=== PATIENT | male | born 1950 | race Caucasian/White ===

== ENCOUNTER 2021-12-22 08:28 | Observation (INO) | payer MEDICARE ==
--- NOTE | 2021-12-22 08:31 | ERPHSYRPT ---
- History of Present Illness Time Seen by Provider: 12/22/21 08:31 Source: patient, family Exam Limitations: no limitations Physician History: This is a 71-year-old white male who Saturday prior to this evaluation ate a hotdog and then felt as though this food bolus was caught in his esophagus. Early on, he states he was having difficulty swallowing his secretions. However, he was breathing fine so he waited. This morning, he did cough up onion which he had with his hot dog and he did try a small amount of liquid this morning which he tolerated. He does have painful swallowing and he did not want to take any more oral intake until he was evaluated. He denies chest pain. He denies shortness of breath. He has no nausea vomiting or diarrhea symptoms. He is never had an esophageal food bolus stuck in the past patient does have a history of coronary artery disease, myocardial infarction and hypertension. Patient did not take his blood pressure medication since Saturday because he could not swallow his pills. Timing/Duration: gradual onset Severity: mild Prearrival Treatment: no prearrival treatment Modifying Factors: Improves With: other Associated Symptoms: difficulty swallowing, No drooling (Patient is no longer drooling but has not fully tested his swallowing) Allergies/Adverse Reactions: No Known Drug Allergies Allergy (Unverified 12/22/21 08:41) Travel Risk - International Travel Have you traveled outside of the country in past 3 weeks: No - Coronavirus Screening Are you exhibiting any of the following symptoms?: No Close contact with a COVID-19 positive Pt in past 14-21 Days: No - Review of Systems Constitutional: No Symptoms Eyes: No Symptoms Ears, Nose, & Throat: No Symptoms Respiratory: No Symptoms Cardiac: No Symptoms Abdominal/Gastrointestinal: Dysphagia Genitourinary Symptoms: No Symptoms Musculoskeletal: No Symptoms Skin: No Symptoms Neurological: No Symptoms Psychological: No Symptoms Endocrine: No Symptoms Hematologic/Lymphatic: No Symptoms Immunological/Allergic: No Symptoms All Other Systems: Reviewed and Negative - Past Medical History Neurological History: Peripheral Neuropathy Cardiac History: Coronary Artery Disease, High Cholesterol, Hypertension, Myocardial Infarction ([place]) Respiratory History: No Pertinent History Endocrine Medical History: No Pertinent History Musculoskeletal History: Fractures Other Medical History: HX FX RIGHT ELBOW, RIGHT LOWER LEG - Nursing Vital Signs Nursing Vital Signs: Pain Scale Pain Intensity 0 - Physical Exam General Appearance: no apparent distress, alert, anxiety Eye Exam: bilateral eye: normal inspection, PERRL, EOMI Ear Exam: bilateral ear: auricle normal Nasal Exam: normal inspection Throat Exam: normal, pharynx normal, No excessive drooling Neck Exam: normal inspection, non-tender, supple, full range of motion, trachea midline Cardiovascular/Respiratory Exam: chest non-tender, no respiratory distress Abdominal Exam: non-tender Neurologic Exam: alert, oriented x 3, cooperative, supervisor mails II-XII nml as tested, normal mood/affect, nml cerebellar function, nml station & gait, sensation nml Skin Exam: normal color, warm, dry SpO2 Interpretation: normal O2 Delivery: Room Air - Course Nursing assessment & vital signs reviewed: Yes EKG Interpreted by Me: RATE (74), Sinus Rhythm, NORMAL AXIS, NORMAL INTERVALS, NORMAL QRS, NORMAL ST-T, Other (No acute ischemic changes today) Ordered Tests: Active Orders 24 hr Category Date Time Status EKG-ER Only STAT Care 12/22/21 09:08 Active IV Insertion STAT Care 12/22/21 09:08 Active CBC W DIFF Stat Lab 12/22/21 09:20 Completed CMP Stat Lab 12/22/21 09:20 Completed TROPONIN Q4H Lab 12/22/21 09:20 Completed TROPONIN Q4H Lab 12/22/21 13:15 Ordered TROPONIN Q4H Lab 12/22/21 17:15 Ordered Transfer Order Routine Transfer 12/22/21 Ordered Medication Summary Generic Name Dose Route Start Last Admin Trade Name Freq PRN Reason Stop Dose Admin Sodium Chloride 1,000 mls @ 100 mls/hr 12/22/21 09:15 12/22/21 09:41 Sodium Chloride 0.9% 1000 Ml IV 01/21/22 09:14 100 mls/hr .Q10H MARIIA Administration Discontinued Medications Generic Name Dose Route Start Last Admin Trade Name Freq PRN Reason Stop Dose Admin Glucagon 1 mg 12/22/21 09:21 12/22/21 09:41 Glucagon 1 Mg/Vial Vial IM 12/22/21 09:22 1 mg STAT ONE Administration Glucagon Confirm 12/22/21 09:34 Glucagon 1 Mg/Vial Vial Administered 12/22/21 09:35 Dose 1 mg .ROUTE .STK-MED ONE Hydralazine HCl 10 mg 12/22/21 10:06 Hydralazine Hcl 20 Mg/Ml Vial IV 12/22/21 10:07 STAT ONE Metoprolol Tartrate 5 mg 12/22/21 09:08 12/22/21 09:41 Metoprolol Tartrate 5 Mg/5 Ml Vial IV 12/22/21 09:09 5 mg STAT ONE Administration Metoprolol Tartrate Confirm 12/22/21 09:33 Metoprolol Tartrate 5 Mg/5 Ml Vial Administered 12/22/21 09:34 Dose 5 mg IV .STK-MED ONE Lab/Rad Data: Laboratory Result Diagrams 12/22/21 09:20 12/22/21 09:20 Laboratory Results 12/22/21 12/22/21 12/22/21 Range/Units 09:20 09:20 09:20 WBC 8.6 (4.0-10.5) x10^3/uL RBC 3.92 L (4.1-5.6) x10^6/uL Hgb 12.6 (12.5-18.0) g/dL Hct 38.4 L (42-50) % MCV 98.0 (78-100) fL MCH 32.1 H (26-32) pg MCHC 32.8 (32-36) g/dL RDW 11.9 (11.5-14.0) % Plt Count 224 (150-450) x10^3/uL MPV 9.4 (7.5-11.0) fL Gran % 74.0 H (36.0-66.0) % Immature Gran % (Auto) 0.3 (0.00-0.4) % Nucleat RBC Rel Count 0.0 (0.00-0.1) % Eos # (Auto) 0.08 (0-0.5) x10^3/uL Immature Gran # (Auto) 0.03 (0.00-0.03) x10^3u/L Absolute Lymphs (auto) 1.50 (1.0-4.6) x10^3/uL Absolute Monos (auto) 0.59 (0.0-1.3) x10^3/uL Absolute Nucleated RBC 0.00 (0.00-0.01) x10^3u/L Lymphocytes % 17.4 L (24.0-44.0) % Monocytes % 6.9 (0.0-12.0) % Eosinophils % 0.9 (0.00-5.0) % Basophils % 0.5 (0.0-0.4) % Absolute Granulocytes 6.36 (1.4-6.9) x10^3/uL Basophils # 0.04 (0-0.4) x10^3/uL Sodium 135 L (137-145) mmol/L Potassium 4.3 (3.5-5.1) mmol/L Chloride 100 (98-107) mmol/L Carbon Dioxide 25 (22-30) mmol/L Anion Gap 15.0 (5-15) MEQ/L BUN 18 (9-20) mg/dL Creatinine 1.17 (0.66-1.25) mg/dL Estimated GFR > 60.0 ML/MIN Glucose 124 H (74-106) mg/dL Calcium 10.4 H (8.4-10.2) mg/dL Total Bilirubin 1.00 (0.2-1.3) mg/dL AST 45 (17-59) U/L ALT 35 (0-50) U/L Alkaline Phosphatase 106 (38-126) U/L Troponin I < 0.012 (0.000-0.034) ng/mL Serum Total Protein 8.5 H (6.3-8.2) g/dL Albumin 4.7 (3.5-5.0) g/dL - Progress Progress: unchanged Progress Note: 12/22/21 09:07 Medical decision making: This patient was provided with Pepsi for him to consume orally. He is unable to tolerate swallowing this Pepsi. Therefore, we will contact surgical service on-call in order to take this patient to the operating room for upper endoscopy. 12/22/21 10:09 Medical decision making: I spoke with Dr. Bharathi Plunkett and reviewed the patient history including the fact the patient's blood pressure is elevated and he is on Xarelto. In addition, I let him know that the patient has not been on Xarelto for 3 days and has not been on his blood pressure medication. Dr. Bharathi Plunkett wants the patient admitted to hospitalist to control the blood pressure and he will be at the hospital around 3 or 4:00 this afternoon to perform an EGD and to evaluate for and relieve the food bolus that clinically appears present within the patient's esophagus. I then contacted Dr. Holden who is covering for unassigned patients. We will place the patient on telemetry and provide patient with a as needed hydralazine order to help control his blood pressure while in the hospital awaiting his EGD procedure. Counseled pt/family regarding: lab results, diagnosis - Departure Departure Disposition: Home Clinical Impression: Impacted esophageal foreign body, Hypertension Condition: Stable Critical Care Time: No Referrals: ALVARO BOSWELL [Primary Care Provider] - Follow up/PCP as directed
[2021-12-22] MEDS ORDERED: LOPRESSOR INJECTION IV ONE ×3 (09:08→12:45)
[2021-12-22] MEDS ORDERED: Sodium Chloride 0.9% 1000 ML 1,000 ML IV SCH ×2 (09:15→11:22)
[2021-12-22] MEDS ORDERED: GlucaGen 1 MG IM ONE (09:21)
[2021-12-22 09:23] LABS: Absolute Neutrophil Ct (ANC) 6.36 x10^3/uL (1.4-6.9); Basophil (Absolute #) 0.04 x10^3/uL (0-0.4); Eosinophil % 0.9 % (0.00-5.0); Eosinophil (Absolute #) 0.08 x10^3/uL (0-0.5); Hematocrit 38.4 % (42-50); Hemoglobin 12.6 g/dL (12.5-18.0); Lymphocytes % 17.4 % (24.0-44.0); Mean Corpuscular Hemoglobin 32.1 pg (26-32); Mean Corpuscular Hgb Concent. 32.8 g/dL (32-36); Mean Platelet Volume 9.4 fL (7.5-11.0); Monocyte (Absolute #) 0.59 x10^3/uL (0.0-1.3); Monocytes % 6.9 % (0.0-12.0); Platelet Count 224 x10^3/uL (150-450); Red Blood Count 3.92 x10^6/uL (4.1-5.6); Red Cell Distribution Width 11.9 % (11.5-14.0); White Blood Count 8.6 x10^3/uL (4.0-10.5)
[2021-12-22] MEDS ORDERED: GlucaGen 1 MG ONE (09:34)
[2021-12-22 09:36] LABS: ALBUMIN 4.7 g/dL (3.5-5.0); ALKALINE PHOSPHATASE 106 U/L (38-126); BLOOD UREA NITROGEN 18 mg/dL (9-20); CHLORIDE 100 mmol/L (98-107); Calcium 10.4 mg/dL (8.4-10.2); Carbon Dioxide 25 mmol/L (22-30); Creatinine 1 1.17 mg/dL (0.66-1.25); EST GLOMERULAR FILTRATION RATE > 60.0 ML/MIN; Glucose 124 mg/dL (74-106); Potassium 4.3 mmol/L (3.5-5.1); SGOT/AST 45 U/L (17-59); SGPT/ALT 35 U/L (0-50); SODIUM 135 mmol/L (137-145); Total Protein 8.5 g/dL (6.3-8.2)
[2021-12-22] MEDS ORDERED: APRESOLINE 20 MG/ML INJ IV ONE (10:06)
[2021-12-22 10:41] LABS: INFLUENZA A NEGATIVE (NEGATIVE); INFLUENZA B NEGATIVE (NEGATIVE); RESPIRATORY SYNCTIAL VIRUS NEGATIVE (Negative); SARS-CoV-2 Xpert Express NEGATIVE (NEGATIVE)
[2021-12-22] MEDS ORDERED: FEVERALL 650 MG PR PRN (11:22)
[2021-12-22] MEDS ORDERED: Zofran 4 MG/2 ML VIAL IV PRN (11:22)
[2021-12-22] MEDS ORDERED: APRESOLINE 20 MG/ML INJ IV PRN (11:22)
[2021-12-22 11:59] VITALS: O2SAT 96
[2021-12-22] MEDS ORDERED: Ativan 2 MG/1 ML VIAL IV PRN (13:33)
[2021-12-22] MEDS ORDERED: Quelicin Fliptop 200 MG/10 ML ONE (16:06)
[2021-12-22] MEDS ORDERED: DIPRIVAN 200 MG/20 ML IV ONE (16:06)
[2021-12-22] MEDS ORDERED: Zofran 4 MG/2 ML VIAL ONE (16:06)
[2021-12-22] MEDS ORDERED: Xylocaine-Mpf 2% 5 Ml Vial ONE (16:06)
[2021-12-22] MEDS ORDERED: SUBLIMAZE 100 MCG/2 ML ONE (16:07)
[2021-12-22] MEDS ORDERED: Pre-Attached Lta Kit TP ONE (16:08)
[2021-12-22] MEDS ORDERED: ROBINUL ONE (16:18)
[2021-12-22] MEDS ORDERED: PHENYLEPHRINE HCL ONE (16:20)
[2021-12-22] MEDS ORDERED: Reglan 10 MG/2 ML ONE (16:30)
[2021-12-22] MEDS ORDERED: Lactated Ringers 1,000 ML IV ONE (16:32)
[2021-12-22 16:47] VITALS: BP 183/77; PULSE 71
--- NOTE | 2021-12-25 09:37 | OP ---
SURGERY DATE/TIME: 12/22/2021 1606 PREOPERATIVE DIAGNOSIS: Lodged foreign body esophagus (hot dog). POSTOPERATIVE DIAGNOSIS: Lodged foreign body esophagus (hot dog). PROCEDURES: 1) Local break up and advancement of foreign body (hot dog). 2) EGD. SURGEON: Bin Plunkett M.D. ANESTHESIA: General with intubation by Lupillo Faith CRNA. COMPLICATIONS: None. CONDITION: Stable. INDICATION: The patient presented with a lodged hot dog, could not swallow this down and is spitting in a spittoon. DESCRIPTION OF PROCEDURE: He was taken to endoscopy. Left lateral decubitus position. Scope introduced. Scope was placed out towards the side. The gastroesophageal junction was able to seen and was able to be cannulated and over a period of about ten minutes four or five big chunks of hot dog were placed in front of the scope and pushed down through the gastroesophageal junction. A power line installer was also used. At this time the esophagus was totally cleared. The gastroesophageal junction was clear. The gastroesophageal junction was about a size 44. There is certainly chronic irritation. It is felt prudent not to be dilating this at this time. We will see him back in two to four weeks.
== END 2021-12-22 17:40 | disposition home or self-care (01) ==
LOC: ED 08:28 → MED SURG 11:18
PROVIDERS: ADMIT Surgery; ATTEND Family Medicine
DX: T18.128A Food in esophagus causing other injury, initial encounter (principal); I10 Essential (primary) hypertension; I25.10 Atherosclerotic heart disease of native coronary artery without angina pectoris; I25.2 Old myocardial infarction; Z79.01 Long term (current) use of anticoagulants; Z79.899 Other long term (current) drug therapy; Z20.828 Contact with and (suspected) exposure to other viral communicable diseases
CPT/HCPCS: 00731; 0241U; 36000; 36415; 43247; 80053; 84484; 85025; 93005; 93268; 94760; 96372; 96374; 99100; 99140; 99285; G0378; J0330; J0360; J1610; J2060; J2370; J2405; J2704; J3010

== ENCOUNTER 2023-09-26 12:06 | Emergency (ER) | payer MEDICARE ==
[2023-09-26 12:38] VITALS: TEMP 99.1
--- NOTE | 2023-09-26 12:57 | XRAY ---
Indication: Head injury following fall. Blood thinner therapy. Multiple contiguous axial images obtained through the head without contrast. Comparison: None Age-appropriate global atrophy and mild periventricular degenerative micro-ischemia bilaterally. Remote lacunar infarct right basal ganglia. No acute intracranial hemorrhage, abnormal extra-axial fluid collection, or mass effect. Fourth ventricle is midline without hydrocephalus. Bony calvarium intact. Visualized paranasal sinuses and mastoid air cells are clear. Impression: Nonacute senile brain with remote lacunar infarct right basal ganglia.
[2023-09-26 13:14] VITALS: BP 134/55; PULSE 87; RESP 23; O2SAT 98
--- NOTE | 2023-09-26 13:47 | XRAY ---
Indication: Status post fall. Multiple contiguous axial images obtained through the cervical spine. Sagittal and coronal reformatted images obtained. Comparison: None Osseous structures demineralized consistent with patient's age. Axial images negative for acute fracture or suspicious bony lesions. Mild/moderate C4-C6 degenerative endplate spurring and mild multilevel bilateral degenerative facet arthropathy. Sagittal and coronal reformatted images demonstrates 2-3 mm anterolisthesis C4 on C5 and 1-2 mm retrolisthesis C5 on C6. Also C4-C6 disc space narrowing. No acute compression fracture, subluxation, or jumped facet. Normal appearing craniocervical junction. Visualized noncontrasted soft tissues demonstrates moderate left and mild right carotid calcifications. Lung apices clear. Impression: 1. Negative acute fracture. 2. Chronic findings including osteopenia, multilevel degenerative spondylosis, grade 1 C4 anterolisthesis, grade 1 C5 retrolisthesis, and bilateral carotid calcifications.
--- NOTE | 2023-09-26 14:16 | ERPHSYRPT ---
- History of Present Illness Time Seen by Provider: 09/26/23 12:08 Source: patient, family, EMS Exam Limitations: no limitations Patient Subjective Stated Complaint: "I was carrying too much weight and it caused me to fall down". Triage Nursing Assessment: Pt presents to ER by ambulance after experiencing a fall. States was carrying some heavy items and it was "too much weight" and caused him to fall. Pt denies lightheadedness, dizziness, LOC. Pt denies pain. States he did hit head. Pt is alert and oriented x 3. Skin is pink, warm, and dry. 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 Pt has no further complaints of issues at this time. Pt is on blood thinners. Pt's states that he is normally weak and she helps him get up to walk. Physician History: 72 years old male with multiple medical problems including coronary artery disease, hypertension, congestive heart failure, peripheral neuropathy with amputation of toe, bilateral lower extremity swelling, issues with balance at his baseline was trying to get out of the house holding some heavy things, tripped on a step, lost control and hit his head against the concrete. No loss of consciousness. This happened prior to arrival. Patient denies any dizziness lightheadedness, chest pain palpitations or shortness of breath before or after the fall. No numbness tingling or focal weakness reported. No visual disturbance or difficulty speech. Patient is back to his baseline and denies any focal symptoms. Patient reports he did not want to be seen but was insisted by other family members and does not want anything to be done but CAT scan of his head. I have discussed with patient in detail and recommended obtaining at least CT cervical spine as well which he agreed. Patient exam is nonfocal. Lungs fairly clear to auscultation. Not in any distress. Per patient is at his baseline. CT head is negative for any acute trauma findings. CT cervical spine negative for fracture or subluxation but does have some old arthritic changes. Patient is offered pain medication which she declined. Patient has a small abrasion/contusion right forehead but no other injury/skin tear. Discussed the results of workup with patient and family and plan of supportive care which they understand and agree. Once again discussed about obtaining baseline workup which they declined. was involved in decision making as well. Also it was more of a mechanical fall and I think it would be reasonable to be discharged with outpatient follow-up. Discussed signs symptoms of worsening needing return to ER which they seem understanding. Allergies/Adverse Reactions: No Known Drug Allergies Allergy (Verified 09/26/23 12:38) Home Medications: Albuterol Sulfate [Proair Digihaler] 90 mcg IH TIDPRN PRN 12/22/21 [History] Carvedilol 12.5 mg [Coreg 12.5 mg] 12.5 mg PO BID 12/22/21 [History] Gabapentin 600 mg PO TID 12/22/21 [History] Levothyroxine Sodium 25 Mcg [Synthroid 25 Mcg] 25 mcg PO DAILY 12/22/21 [History] Ramipril [Altace] 10 mg PO DAILY 12/22/21 [History] Rivaroxaban [Xarelto] 2.5 mg PO BID 12/22/21 [History] Rosuvastatin Calcium 20 mg PO DAILY 12/22/21 [History] Aspirin EC 81 mg [Ecotrin 81 mg] 81 mg PO DAILY 09/26/23 [History] Hydromorphone HCl 4 mg PO Q6HPRN PRN 09/26/23 [History] cilostazoL [Cilostazol] 50 mg PO DAILY 09/26/23 [History] levoFLOXacin [Levofloxacin] 1 tab PO DAILY 09/26/23 [History] Hx Tetanus, Diphtheria Vaccination/Date Given: No Hx Influenza Vaccination/Date Given: Yes Hx Pneumococcal Vaccination/Date Given: Yes Immunizations Up to Date: No Travel Risk - International Travel Have you traveled outside of the country in past 3 weeks: No - Emerging Infectious Disease Are you exhibiting symptoms associated with any current EIDs: No - Review of Systems Constitutional: No Symptoms Eyes: No Symptoms Ears, Nose, & Throat: No Symptoms Respiratory: No Symptoms Cardiac: No Symptoms Abdominal/Gastrointestinal: No Symptoms Genitourinary Symptoms: No Symptoms Musculoskeletal: Fall Skin: Skin Lesions Neurological: No Symptoms Endocrine: No Symptoms Hematologic/Lymphatic: No Symptoms - Past Medical History Pertinent Past Medical History: Yes Neurological History: Peripheral Neuropathy ENT History: No Pertinent History Cardiac History: Coronary Artery Disease, High Cholesterol, Hypertension, Myocardial Infarction ([place]) Respiratory History: No Pertinent History Endocrine Medical History: No Pertinent History Musculoskeletal History: Fractures GI Medical History: Hernia History: No Pertinent History Psycho-Social History: No Pertinent History Male Reproductive Disorders: No Pertinent History Other Medical History: HX FX RIGHT ELBOW, RIGHT LOWER LEG - Past Surgical History Past Surgical History: Yes Gastrointestinal: Appendectomy Musculoskeletal: Orthopedic Surgery Other Surgical History: elbow,femoral artery - Social History Smoking Status: Never smoker Exposure to second hand smoke: No Drug Use: none Patient Lives Alone: No - Social Determinants of Health Will the patient participate in the screening: Yes Do you worry about a steady place to live?: No Do you have any problems with any of the following?: No known problems In the past 12 months,have you had to go without utilities?: No Transportation Issues: No Has anyone in your support network made you feel unsafe?: No Have you or anyone in your house had to go without enough: No - Nursing Vital Signs Nursing Vital Signs: Initial Vital Signs Temperature 99.1 F 09/26/23 12:28 Pulse Rate 89 09/26/23 12:28 Respiratory Rate 18 09/26/23 12:28 Blood Pressure 125/58 09/26/23 12:28 O2 Sat by Pulse Oximetry 99 09/26/23 12:28 Pain Scale Pain Intensity 0 - Uriah Coma Score Best Eye Response (Uirah): (4) open spontaneously Best Verbal Response (Uriah): (5) oriented Best Motor Response (Uriah): (6) obeys commands Uriah Total: 15 - Physical Exam General Appearance: no apparent distress, alert Head Injury: contusions (Right forehead) Eye Exam: PERRL/EOMI, eyes nml inspection ENT Exam: airway nml, No evidence of ENT injury, No dental injury, No nml ext.inspection Neck Exam: supple, trachea midline, full range of motion, normal alignment, normal inspection Respiratory/Chest Exam: normal breath sounds, respiratory distress Cardiovascular Exam: normal heart sounds, regular rate/rhythm Gastrointestinal Exam: soft, No tenderness Back Exam: normal inspection, normal range of motion Extremity Exam: normal range of motion, other (Amputation of toe) Neurologic Exam: alert, oriented x 3, cooperative, etched circuit processor II-XII nml as tested, normal mood/affect, sensation nml, No motor deficits Skin Exam: normal color SpO2 Interpretation: normal SpO2: 98 O2 Delivery: Room Air Ordered Tests: Active Orders 24 hr Category Date Time Status CERVICAL SPINE WO CONTRAST [CT] Stat Exams 09/26/23 12:34 Completed HEAD WITHOUT CONTRAST [CT] Stat Exams 09/26/23 12:09 Completed - Progress Progress: improved Progress Note: 09/26/23 14:16 72 years old male with multiple medical problems including coronary artery disease, hypertension, congestive heart failure, peripheral neuropathy with amputation of toe, bilateral lower extremity swelling, issues with balance at his baseline was trying to get out of the house holding some heavy things, tripped on a step, lost control and hit his head against the concrete. No loss of consciousness. This happened prior to arrival. Patient denies any dizziness lightheadedness, chest pain palpitations or shortness of breath before or after the fall. No numbness tingling or focal weakness reported. No visual disturbance or difficulty speech. Patient is back to his baseline and denies any focal symptoms. Patient reports he did not want to be seen but was insisted by other family members and does not want anything to be done but CAT scan of his head. I have discussed with patient in detail and recommended obtaining at least CT cervical spine as well which he agreed. Patient exam is nonfocal. Lungs fairly clear to auscultation. Not in any distress. Per patient is at his baseline. CT head is negative for any acute trauma findings. CT cervical spine negative for fracture or subluxation but does have some old arthritic changes. Patient is offered pain medication which she declined. Patient has a small abrasion/contusion right forehead but no other injury/skin tear. Discussed the results of workup with patient and family and plan of supportive care which they understand and agree. Once again discussed about obtaining baseline workup which they declined. was involved in decision making as well. Also it was more of a mechanical fall and I think it would be reasonable to be discharged with outpatient follow-up. Discussed signs symptoms of worsening needing return to ER which they seem understanding. Counseled pt/family regarding: diagnosis, need for follow-up, rad results Medical Desision Making - Independent Historian Additional History obtained from: Spouse, Staff Development Coordinator/EMT - Diagnostic Testing Diagnostic test were ordered, analyzed, and reviewed by me: Yes Radiological Interpretation: Reviewed by me - Departure Departure Disposition: Home Clinical Impression: Forehead contusion, Fall Condition: Stable Critical Care Time: No Referrals: ALVARO BOSWELL [Primary Care Provider] - Follow up with PCP 1 day Instructions: Preventing falls in adults, Head injury observation in adults Additional Instructions: Take Tylenol as needed. Intermittent ice application. Use cane/walker for ambulation to avoid a fall. Follow head injury instructions and return to ER for any worsening. Also return to ER for if having chest pain palpitations or shortness of breath.
== END 2023-09-26 14:49 | disposition home or self-care (01) ==
LOC: ED 12:06
DX: Z04.3 Encounter for examination and observation following other accident (principal); S00.83XA Contusion of other part of head, initial encounter; W01.0XXA Fall on same level from slipping, tripping and stumbling without subsequent striking against object, initial encounter; I10 Essential (primary) hypertension; E78.5 Hyperlipidemia, unspecified; Z79.01 Long term (current) use of anticoagulants; Z79.899 Other long term (current) drug therapy
CPT/HCPCS: 70450; 72125; 99283